=== PATIENT | female | born 1995 | race Hispanic/Latino ===

== ENCOUNTER 2023-04-25 18:49 | Day surgery (SDC) | payer BC ==
[2023-04-25 19:13] VITALS: BMI 42.4
[2023-04-25] MEDS ORDERED: hydrALAZINE 20 MG/ML VIAL SLOW IVP PRN (19:48)
[2023-04-25] MEDS ORDERED: Lactated Ringer's 1,000 ML IV SCH (20:00)
[2023-04-25 20:37] LABS: Fetal Membranes Rupture No Membranes Rupture (No Rupture)
== END 2023-04-25 22:10 | disposition home or self-care (01) ==
LOC: CSHLD/OP 18:49
PROVIDERS: ATTEND Student in an Organized Health Care Education/Training Program
DX: O47.1 False labor at or after 37 completed weeks of gestation (principal); O99.891 Other specified diseases and conditions complicating pregnancy; R53.83 Other fatigue; N89.8 Other specified noninflammatory disorders of vagina; O99.283 Endocrine, nutritional and metabolic diseases complicating pregnancy, third trimester; E06.3 Autoimmune thyroiditis; O99.213 Obesity complicating pregnancy, third trimester; E66.9 Obesity, unspecified; O99.353 Diseases of the nervous system complicating pregnancy, third trimester; G56.00 Carpal tunnel syndrome, unspecified upper limb; Z79.890 Hormone replacement therapy; Z3A.37 37 weeks gestation of pregnancy
CPT/HCPCS: 84112; 87480; 87510; 87660; 99283

== ENCOUNTER 2023-05-10 19:00 | Inpatient (IN) | payer BC, OTHER ==
[2023-05-11 01:33] VITALS: BMI 43.4
[2023-05-11] MEDS ORDERED: Diphenoxylate HCl/Atropine Tablet PO PRN (02:50)
[2023-05-11] MEDS ORDERED: Misoprostol 200 MCG TAB PR PRN (02:50)
[2023-05-11] MEDS ORDERED: Lidocaine 1% (PF) 30 ML VIAL SC PRN (02:50)
[2023-05-11] MEDS ORDERED: Acetaminophen 500 MG TAB PO PRN (02:50)
[2023-05-11] MEDS ORDERED: Carboprost 250 MCG/ML AMP IM PRN (02:50)
[2023-05-11] MEDS ORDERED: hydrALAZINE 20 MG/ML VIAL SLOW IVP PRN (02:50)
[2023-05-11] MEDS ORDERED: Docusate 100 MG CAP PO PRN (02:50)
[2023-05-11] MEDS ORDERED: Ondansetron PF 4 MG/2 ML Vial IVP PRN ×3 (02:50→22:22)
[2023-05-11] MEDS ORDERED: Promethazine HCl 25 MG/ML VIAL IM PRN ×3 (02:50→22:22)
[2023-05-11] MEDS ORDERED: Methylergonovine 0.2 MG/ML VIAL IM PRN (02:50)
[2023-05-11] MEDS ORDERED: Oxytocin 30 units/NS 500 ML 500 ML IV SCH (03:00)
[2023-05-11] MEDS: Lactated Ringer's 1,000 ML IV SCH ×3 (03:00→10:17)
[2023-05-11 03:13] LABS: Hematocrit 34.8 % (34.9-44.5); Hemoglobin 11.8 g/dL (12.0-15.5); Mean Corpuscular HGB CONC 33.9 g/dL (32.0-36.0); Mean Corpuscular Hemoglobin 32.2 pg (27.0-33.0); Mean Corpuscular Volume 95.1 fl (81.6-98.3); Mean Platelet Volume 9.3 fl (7.4-10.4); Platelet Count 314 10x3/uL (150-450); RBC Distribution Width 12.7 % (11.5-14.5); Red Blood Cell (RBC) Count 3.66 10x6/uL (3.90-5.03); White Blood Cell (WBC) Count 8.2 10x3/uL (3.5-10.5)
[2023-05-11] MEDS: Misoprostol 100 MCG TAB VAG SCH ×4 (03:24→19:51)
[2023-05-11 03:30] LABS: ALT (SGPT) 12 U/L (8-55); AST (SGOT) 19 U/L (5-34); Albumin 3.2 g/dL (3.5-5.0); Alkaline Phosphatase 269 U/L (40-110); Anion Gap 16 mmol/L (10-20); BUN (Urea Nitrogen) 6 mg/dL (7.0-18.7); Bilirubin, Total 0.7 mg/dL (0.2-1.2); Calc. Creatinine Clearance 237 mL/min (70-130); Calcium 8.6 mg/dL (7.8-10.44); Carbon Dioxide 17 mmol/L (22-29); Chloride 108 mmol/L (98-107); Estimated GFR 129; Globulin 2.9 g/dL (2.4-3.5); Glucose 76 mg/dL (70-105); Potassium 3.8 mmol/L (3.5-5.1); Protein, Total 6.1 g/dL (6.0-8.3); Sodium 137 mmol/L (136-145)
[2023-05-11 03:37] LABS: Protein, Urine Random Quant Less than 10 mg/dL (1-14)
[2023-05-11 03:49] LABS: HBSAg Index 0.16 S/CO (0-0.99); Hep B Surf Ag - L&D Non-Reactive S/CO (NonReactive)
[2023-05-11 03:50] LABS: Syphilis Antibody Nonreactive (Nonreactive); Syphilis Antibody Index 0.05 S/CO (<1.00 Non-Reactive)
[2023-05-11] MEDS ORDERED: Levothyroxine Sodium 50 MCG TAB PO SCH (06:00)
[2023-05-11] MEDS ORDERED: fentaNYL/Ropivacaine Epidural 0 ML ONE (07:02)
[2023-05-11] MEDS ORDERED: Naloxone HCl 0.4 mg/ml Vial IVP PRN ×4 (07:46→22:22)
[2023-05-11] MEDS ORDERED: Lactated Ringer's 500 ML IV PRN (07:46)
[2023-05-11] MEDS ORDERED: Moisturizing Cream (Eucerin) 113 GM JAR TOP PRN ×2 (07:46→22:22)
[2023-05-11] MEDS ORDERED: ePHEDrine Sulfate 50 MG/10 ML VIAL SLOW IVP PRN (07:46)
[2023-05-11] MEDS ORDERED: diphenhydrAMINE 50 MG/ML VIAL IVP PRN ×2 (07:46→22:22)
[2023-05-11] MEDS ORDERED: Acetaminophen 325 MG TAB PO PRN (07:46)
[2023-05-11] MEDS ORDERED: fentaNYL 2 mcg/Ropivacaine 0.2% Epidural 100 ML CADD EPIDURAL SCH (08:00)
[2023-05-11] MEDS ORDERED: Communication Order-Pharmacy FS SCH ×2 (08:00→22:30)
[2023-05-11] MEDS ORDERED: Terbutaline Sulfate 1 MG/ML VIAL ONE ×2 (08:00→14:42)
[2023-05-11] MEDS ORDERED: Lidocaine 2% MPF 10 ML AMP (For Epidural Use) ONE (08:00)
[2023-05-11] MEDS ORDERED: Bupivacaine PF 0.5% 30 ML VIAL ONE (08:00)
[2023-05-11] MEDS ORDERED: ePHEDrine Sulfate 50 MG/10 ML VIAL ONE (08:00)
[2023-05-11] MEDS ORDERED: Prenatal Vitamin 1 TAB PO SCH (09:00)
[2023-05-11] MEDS ORDERED: Terbutaline Sulfate 1 MG/ML VIAL SC SCH (15:00)
[2023-05-11 15:21] LABS: Uric Acid 6.1 mg/dL (2.6-6.0)
[2023-05-11] MEDS ORDERED: fentaNYL/Ropivacaine Epidural 100 ML ONE (19:34)
[2023-05-11] MEDS ORDERED: Azithromycin 500 MG VIAL ONE (20:35)
[2023-05-11] MEDS ORDERED: CEFAZOLIN 2 GM VIAL ONE (20:35)
[2023-05-11] MEDS ORDERED: Dexamethasone 4 mg/ml Vial ONE (21:04)
[2023-05-11] MEDS ORDERED: Ondansetron PF 4 MG/2 ML Vial ONE (21:04)
[2023-05-11] MEDS ORDERED: Morphine PF 10 MG/10 ML VIAL ONE (21:08)
[2023-05-11] MEDS ORDERED: PHENYLEPHRINE-NS 100 MCG/ML 10 ML SYRINGE ONE (21:09)
[2023-05-11 21:36] LABS: RapidComm Collect By CBN; pH (Cord, venous) 7.231 (7.250-7.350)
[2023-05-11] MEDS ORDERED: Ondansetron HCl/PF 4 MG/2 ML Vial IVP PRN (22:22)
[2023-05-11] MEDS ORDERED: Naloxone HCl 0.4 mg/ml Vial IV PRN (22:22)
[2023-05-11] MEDS ORDERED: Promethazine HCl 25 MG SUPP PR PRN (22:22)
[2023-05-11] MEDS ORDERED: Ketorolac Tromethamine 30 MG/ML VIAL IVP SCH (22:30)
[2023-05-11] MEDS ORDERED: Meperidine HCl/PF 25 MG/ML VIAL SLOW IVP PRN (22:40)
[2023-05-11] MEDS ORDERED: fentaNYL 50 mcg/mL 1 mL Vial SLOW IVP PRN (22:41)
[2023-05-11] MEDS: Ketorolac Tromethamine 30 MG/ML VIAL IVP PRN (23:04)
[2023-05-12] MEDS ORDERED: Misoprostol 200 MCG TAB PR PRN (00:12)
[2023-05-12] MEDS ORDERED: Promethazine HCl 25 MG/ML VIAL IM PRN (00:12)
[2023-05-12] MEDS ORDERED: Methylergonovine 0.2 MG/ML VIAL IM PRN (00:12)
[2023-05-12] MEDS ORDERED: Oxytocin 30 units/NS 500 ML 500 ML IV SCH (00:12)
[2023-05-12] MEDS ORDERED: Boostrix 0.5 ML (Tdap) VIAL (>/=7 yrs of age) IM ONE (00:12)
[2023-05-12] MEDS ORDERED: hydrALAZINE 20 MG/ML VIAL SLOW IVP PRN (00:12)
[2023-05-12] MEDS ORDERED: Ondansetron PF 4 MG/2 ML Vial IVP PRN (00:12)
[2023-05-12 05:38] LABS: Hematocrit 33.1 % (34.9-44.5); Hemoglobin 11.2 g/dL (12.0-15.5); Mean Corpuscular HGB CONC 33.8 g/dL (32.0-36.0); Mean Corpuscular Hemoglobin 32.5 pg (27.0-33.0); Mean Corpuscular Volume 95.9 fl (81.6-98.3); Mean Platelet Volume 9.1 fl (7.4-10.4); Platelet Count 287 10x3/uL (150-450); RBC Distribution Width 12.7 % (11.5-14.5); Red Blood Cell (RBC) Count 3.45 10x6/uL (3.90-5.03); White Blood Cell (WBC) Count 17.2 10x3/uL (3.5-10.5)
[2023-05-12] MEDS: Docusate 100 MG CAP PO SCH ×2 (08:46→21:10)
[2023-05-12] MEDS: Prenatal Vitamin 1 TAB PO SCH (08:46)
[2023-05-12] MEDS: Ferrous Sulfate 325 MG TAB PO SCH ×2 (08:47→22:09)
[2023-05-12] MEDS ORDERED: diphenhydrAMINE 25 MG CAP PO PRN (12:42)
[2023-05-12] MEDS ORDERED: diphenhydrAMINE 30 GM TUBE TOP PRN (12:42)
[2023-05-12] MEDS: Acetaminophen 500 MG TAB PO SCH ×2 (13:09→22:10)
[2023-05-12] MEDS: Ketorolac Tromethamine 30 MG/ML VIAL IVP PRN ×2 (13:10→18:58)
[2023-05-13] MEDS ORDERED: Levothyroxine Sodium 50 MCG TAB PO SCH (06:00)
[2023-05-13] MEDS: Ibuprofen 800 MG TAB PO SCH ×2 (06:27→13:49)
[2023-05-13] MEDS: Acetaminophen 500 MG TAB PO SCH ×3 (06:34→13:53)
[2023-05-13] MEDS ORDERED: HYDROcodone/Acetaminophen 5/325 mg Tablet PO PRN (07:23)
[2023-05-13] MEDS ORDERED: Simethicone Chewable 80 MG TAB PO PRN (07:25)
[2023-05-13] MEDS ORDERED: Furosemide 20 MG TAB PO SCH (08:00)
[2023-05-13] MEDS: Prenatal Vitamin 1 TAB PO SCH (08:01)
[2023-05-13] MEDS: Docusate 100 MG CAP PO SCH (08:02)
[2023-05-13] MEDS: Ferrous Sulfate 325 MG TAB PO SCH (08:05)
[2023-05-13] MEDS ORDERED: Polyethylene Glycol 3350 17 GM Packet PO SCH (09:00)
[2023-05-13] MEDS: Misoprostol 100 MCG TAB VAG SCH (10:56)
[2023-05-13 12:19] VITALS: BP 119/54; TEMP 98.2
== END 2023-05-13 15:35 | disposition home or self-care (01) | DRG 788 ==
LOC: CSHLD 05-11 01:19 → CSHPED 05-12 00:30
PROVIDERS: ADMIT Student in an Organized Health Care Education/Training Program; ATTEND Student in an Organized Health Care Education/Training Program
PROC: 10D00Z1 Extraction of Products of Conception, Low, Open Approach (ICD-10-PCS; principal; 2023-05-11)
PROC: 10907ZC Drainage of Amniotic Fluid, Therapeutic from Products of Conception, Via Natural or Artificial Opening (ICD-10-PCS; 2023-05-11)
PROC: 10H07YZ Insertion of Other Device into Products of Conception, Via Natural or Artificial Opening (ICD-10-PCS; 2023-05-11)
PROC: 4A043R1 Measurement of Venous Saturation, Peripheral, Percutaneous Approach (ICD-10-PCS; 2023-05-11)
PROC: 3E033VJ Introduction of Other Hormone into Peripheral Vein, Percutaneous Approach (ICD-10-PCS; 2023-05-11)
PROC: 3E033XZ Introduction of Vasopressor into Peripheral Vein, Percutaneous Approach (ICD-10-PCS; 2023-05-11)
DX: O99.214 Obesity complicating childbirth (principal); Z3A.39 39 weeks gestation of pregnancy; Z37.0 Single live birth; O99.284 Endocrine, nutritional and metabolic diseases complicating childbirth; O16.4 Unspecified maternal hypertension, complicating childbirth; O76 Abnormality in fetal heart rate and rhythm complicating labor and delivery; O75.3 Other infection during labor; O12.05 Gestational edema, complicating the puerperium
CPT/HCPCS: 36415; 51702; 80053; 82570; 82805; 84156; 84550; 85027; 86780; 86850; 86900; 86901; 87340; J1100; J1200; J1885; J2175; J2274; J2405; J2590; J3105; J7120; S0020